=== PATIENT | female | born 1995 | race Caucasian/White ===

== ENCOUNTER 2019-08-26 06:39 | Observation (INO) ==
--- NOTE | 2019-08-21 09:48 | Anesthesiology Consultation ---
Date of Service August 21, 2019 Assessment & Plan (1) Encounter for pre-operative examination: Chart Review Chart Review: entry level management initiated - Check test AM DOS Per nursing assessment 08/20/2019, no recent travel. Resides in [facility]. Uses PPE. No known COVID positive contacts are covered related symptoms. No scheduled preop COVID testing. Patient will need assessed by anesthesia day of surgery and 2020 will most likely will need to be enforced. Patient seen by maxillofacial surgery on 08/14/2019 = history of SVThaving mapping and ablation on August 25. Continues with pain swelling and drainage from infected wisdom tooth on right side. Symptoms intermittent. Chronic wisdom tooth condition should not affect her ability to have sedation or the ablation. After pending August 25 EP procedure/ablation, will plan for general anesthesia to remove infected wisdom tooth after cardiac clearance. History Surgery Operation Date: 08/26/19 08:00 Proposed Procedures p SVT Ablation w/Mapping w/Ang Priest DO Height/Weight Height: 5 ft 3 in Weight: 54.431 kg Allergies Allergy/AdvReac Type Severity Reaction Status Date / Time loracarbef [From Lorabid] Allergy Mild as child Verified 08/20/19 13:35 hives cilantro Allergy Mild Hives Uncoded 08/20/19 13:35 metals AdvReac Mild skin Uncoded 08/20/19 13:35 irritation can wear gold Medications Home Medications Medication Instructions Recorded Confirmed Last Taken medroxyprogesterone 150 mg/mL 150 mg IM ONCE ml 08/14/19 08/20/19 Unknown intramuscular suspension amoxicillin 500 mg capsule 500 mg PO Q8H #21 cap 08/17/19 08/20/19 Unknown Past Medical History Medical History Asthma exercise induced Hx of gastric ulcer a few yrs ago and no problems at present SVT (supraventricular tachycardia) needs EP procedure Past Family History Family History Grandfather (Paternal) Breast cancer Father Cancer Hypertension Brother Hypertension Past Surgical History Surgical History Hx of esophagogastroduodenoscopy Social History Smoking Status: Current some day smoker tobacco type: cigarettes Smoking cigarettes per day: 3 cig a day Do You Dip or Chew Tobacco: No Hx Alcohol Use: No Hx Substance Use: No substance use type: does not use Testing Laboratory Results 08/17/19= WBC: 6.61 H/H: 14.3/41.4 PLATELETS: 269 SODIUM: 141 POTASSIUM: 4.4 CHLORIDE: 102 CO2: 24 BUN: 13 CREATININE: 0.8 GLUCOSE: 94 Electrocardiogram Date: 08/17/19 Atrial flutter with variable AV block at 93 bpm. Rightward axis. Pulmonary disease.
[2019-08-26] MEDS ORDERED: MIDAZOLAM HCL 1 MG/ML 2ML VIAL ONE ×2 (07:45→08:39)
[2019-08-26] MEDS ORDERED: fentaNYL citrate 100 MCG/2 ML VIAL ONE (07:46)
--- NOTE | 2019-08-26 07:48 | History & Physical Report ---
Date of Service August 26, 2019 Assessment & Plan (1) SVT (supraventricular tachycardia): History of Present Illness Chief Complaint: palpitations Primary Care Provider: Rudi Mcadams MD pt here for elective EPS and possible ablation Allergies Allergy/AdvReac Type Severity Reaction Status Date / Time loracarbef [From Lorabid] Allergy Mild as child Verified 08/20/19 13:35 hives cilantro Allergy Mild Hives Uncoded 08/20/19 13:35 metals AdvReac Mild skin Uncoded 08/20/19 13:35 irritation can wear gold Home Medications Home Medications Medication Instructions Recorded Confirmed Type medroxyprogesterone 150 mg/mL 150 mg IM ONCE ml 08/14/19 08/20/19 History intramuscular suspension Past Med/Surg History Medical History Asthma exercise induced Hx of gastric ulcer a few yrs ago and no problems at present SVT (supraventricular tachycardia) needs EP procedure Surgical History Hx of esophagogastroduodenoscopy Family History Grandfather (Paternal) Breast cancer Father Cancer Hypertension Brother Hypertension Social History Preferred Language: Bahamian Communication Ability: Effective Handbag Operator Required: No Beliefs That Will Affect Care: None marital status: Single Current Living Situation: Family Other Information That Helps Us Care for You: No Feels Safe at Home: Yes Safety Concerns: Feels Safe At This Time Smoking Status: Current some day smoker Tobacco Type: cigarettes ; Cigarettes Per Day: 3 cig a day ; Do You Dip or Chew Tobacco: No ; Second Hand Exposure: No ; Tobacco Cessation Education Requested by Patient: No Hx Alcohol Use: No Hx Substance Use: No Review of Systems All systems reviewed & are unremarkable except as noted in HPI & below Physical Exam Physical Exam: aaox3, NAD NC/AT, EOMI Supple No JVD Nrl S1/S2, No murmur CTA b/l no w/r/r soft nt/nd no LE edema b/l skin intact no focal deficits Results & Data Vital Signs (Past 12 Hours) Vital Signs Temp Pulse Resp BP Pulse Ox 07/08/20 07:05 37 C 118 H 20 108/74 97
[2019-08-26] MEDS ORDERED: KETAMINE HCL INJ 50 MG/ML 10 ML VIAL ONE (07:54)
[2019-08-26] MEDS ORDERED: ATROPINE SULFATE 0.1 MG/ML 10ML SYR IV PRN (08:21)
[2019-08-26] MEDS ORDERED: ePHEDrine sulfate 50 MG/ML AMP IV PRN (08:21)
[2019-08-26] MEDS ORDERED: fentaNYL citrate 100 MCG/2 ML VIAL IV PRN (08:21)
[2019-08-26] MEDS ORDERED: ONDANSETRON INJ 2 MG/ML 2 ML VIAL IV PRN (08:21)
[2019-08-26] MEDS ORDERED: PROPOFOL IV EMULSION 10 MG/ML 20 ML VIAL IV ONE ×2 (08:35→10:12)
[2019-08-26] MEDS ORDERED: ONDANSETRON INJ 2 MG/ML 2 ML VIAL ONE (08:35)
[2019-08-26] MEDS ORDERED: ISOPROTERENOL HCL 0.2 MG/ML 5 ML AMP IV ONE (09:00)
[2019-08-26] MEDS ORDERED: ACETAMINOPHEN 325 MG TAB PO PRN (10:39)
--- NOTE | 2019-08-26 10:49 | Discharge Summary ---
Date of Service August 27, 2019 Admission HPI Per Admitting Provider pt here for elective EPS and possible ablation Admission Exam Per Admitting Provider aaox3, NAD NC/AT, EOMI Supple No JVD Nrl S1/S2, No murmur CTA b/l no w/r/r soft nt/nd no LE edema b/l skin intact no focal deficits Principal Diagnosis SVT non-inducible EPS Discharge Exam aaox3, NAD NC/AT, EOMI Supple No JVD Nrl S1/S2, No murmur CTA b/l no w/r/r soft nt/nd no LE edema b/l skin intact no focal deficits b/l groins soft no hematoma Discharge Data Allergies Allergy/AdvReac Type Severity Reaction Status Date / Time loracarbef [From Lorabid] Allergy Mild as child Verified 08/20/19 13:35 hives cilantro Allergy Mild Hives Uncoded 08/20/19 13:35 metals AdvReac Mild skin Uncoded 08/20/19 13:35 irritation can wear gold Procedures Performed Operation Date: 08/26/19 08:00 Actual Procedures p EPS + Ablation for SVT Flutter - DO twila Us 3D Mapping (Carto) - DO twila Us Drug Stimulation - Linda Priest DO LINQ INSERTION ON 08/27/2019 Ordered Studies ECG: SR 08/26/19 07:15 EP Lab Images for PACS ONCE Hospital Course (1) SVT (supraventricular tachycardia): Total Time Total Time Spent Total Time Spent (In Minutes): 40 Total Time Includes: Examination of the Patient, Discharge Planning, Medication Reconciliation and Other Discharge Plan Discharge Items Reason For Visit: Supraventricular Tachycardia Discharge Diagnosis: SVT s/p EPS Condition on Discharge: Good Activity: As commented below Lifting: No more than 10 pounds Lifting Comment: no heavy lifting or squating for 1 week Bathing: No limitations Sexual Activity: After one week Call non-emergency contact if: you have any medication questions Addtl Attending Provider Instructions: Device and wound check next week at [facility] on September 01 at 10:15am Saturday F/u with Dr. Priest at [facility] Cardiology on Saturday10/02/2019 at 11:45am Pending Studies at Discharge: No Stand-Alone Forms: My [facility] Medications and DC Order Prescriptions: Continued medroxyprogesterone [Depo-Provera] 150 mg/mL suspension 150 mg IM ONCE RF: 0 Admission Data Admit Date/Time: 08/26/19 10:45 Attending Provider: Linda Priest Admit Provider: Linda Priest Primary Care Provider: Rudi Mcadams
--- NOTE | 2019-08-26 11:31 | Anesthesiology Progress Note ---
Date of Service August 26, 2019 Anesthesia Post Procedure Vital Signs Vital Signs: Temp Pulse Resp BP Pulse Ox 08/26/19 11:15 86 20 88/55 L 99 08/26/19 11:00 92 H 20 84/54 L 100 08/26/19 07:05 98.6 F 118 H 20 108/74 97 Transfer of Care Handoff Completed per policy Notes Mental Status: alert / awake / arousable and participated in evaluation Patient Amnestic to Procedure: Yes Nausea / Vomiting: adequately controlled Pain: adequately controlled Airway Patency, RR, SpO2: stable & adequate BP & HR: stable & adequate Hydration State: stable & adequate Anesthetic Complications: no major complications apparent and Pt Satisfied with anesthetic care
--- NOTE | 2019-08-26 17:55 | Operative Report (OR) ---
DATE OF OPERATION: 08/26/2019 PREOPERATIVE DIAGNOSIS: Supraventricular tachycardia. POSTOPERATIVE DIAGNOSES: Noninducible electrophysiology study for an supraventricular tachycardia. There was evidence of dual atrioventricular sari pathway and transient high-degree atrioventricular block. PROCEDURE: Electrophysiology study, isuprel drug infusion, 3D mapping of the His bundle region. SURGEON: Linda Pirest DO. SALESPERSON SHEET MUSIC: None. ANESTHESIA: Given by Anesthesiology. Please refer to their notes for complete details. Start time was 07:55, end time 10:31. They gave a total of 6 mg of Versed, 100 mcg of fentanyl, 30 mg of ketamine, 450 mg of propofol. ADDITIONAL MEDICINES: 4 mg of Zofran. INTRAVENOUS FLUIDS: 800 mL URINE OUTPUT: Not applicable. COMPLICATIONS: None. FINDINGS: See below. DRAINS: None. BLOOD LOSS: 5 mL INDICATIONS: This is a 24-year-old female with past medical history for recurrent SVT responding to vagal maneuvers and in [place], she actually went to the hospital and got adenosine. Unfortunately, those 12 leads were not available. Palpitations and a family history of SVT as well as she has a personal history of endometriosis. Due to the recurrent SVT, she was recommended an electrophysiology study with possible ablation. CONSENT: Consent was obtained prior to the patient going into electrophysiology lab. The patient was informed of the risks, benefits and alternative of procedure. Risks include but not limited to sudden cardiac , cardiac arrhythmias, cerebrovascular accident, myocardial infarction, injury to the blood vessels, chamber of the heart or the [place] electrical system where she would need a permanent pacemaker, bleeding and infection. The patient understood these risks and agreed to proceed as planned. Informed consent was obtained. DESCRIPTION OF THE PROCEDURE: The patient was brought into electrophysiology lab in a fasting state. It was connected to continuous cardiac monitoring. A timeout was performed to ensure patient identity and procedure correctly. The patient was prepped and draped over bilateral groins in normal surgical standard fashion. Monitored anesthetic care was given throughout the procedure for patient's comfort level via anesthesiology. [place] precautions were maintained throughout the procedure. 10 mL of 1% lidocaine, bupivacaine mixture were given in the bilateral groins. Then using the modified Seldinger technique, venous access was obtained in the following manner. The right femoral vein had a 6-German sheath followed then by a quadripolar Joel catheter positioned in the high right atrium and a 6-German sheath that ultimately was swapped out for an SRO and then the ablation 4 mm nonirrigated DF curved catheter. The left femoral vein had a 6-German sheath followed by a Joel quadripolar catheter positioned at the right ventricular apex. A 7-German sheath with a Hisser catheter positioned over the His bundle region and a 7-German sheath with a Decapolar Biosense DF curved coronary sinus catheter positioned down the coronary sinus. With all the catheters positioned an electrophysiology study was performed with the following findings: Sinus cycle length 834 milliseconds, PA 138 milliseconds, QRS 69 milliseconds, QT 395 milliseconds, AH was 61 milliseconds, HV was 39 milliseconds. The AV Wenckebach was 410 milliseconds. There was evidence of dual AV sari pathway where the fast pathway ERP was 600/360 and 500/390 and the AV node ERP was 600/340 and 500/360. The atrial ERP was 600/200 and 500/220 and the right ventricular ERP was 600/240 and 400/230. I gave up to triples from the HRA and the coronary sinus without any inducible SVT, so I started isuprel at 2. Once I had a nice isuprel response, electrophysiology study was performed with the following findings: Sinus cycle length 483 milliseconds, PA 97 milliseconds, QRS 63 milliseconds, QT 294 milliseconds, AH 44 milliseconds, HV 35 milliseconds, AV Wenckebach was 230 milliseconds, the AV node and the atrial ERP was less than or equal to 400/200. I gave up to triples from the high right atrium. There was no inducible SVT, but I did see 1 or 2 echoes. I then tried to increase Isuprel to 4, but there was still no inducible SVT. Then I stopped the isuprel and interestingly with stopping during washout her heart rate went down to about 700 milliseconds. Did not induce any SVT, but I did have some echoes with the evidence of dual AV sari pathway and some echo beats I opted to set up to do an empiric slow pathway modification. The 6-German sheath on the right femoral groin was swapped out for an SRO and the ablation catheter was placed up into the heart. A 3D mapping of the coronary sinus os and then I started 3D mapping of the His bundle, when I had the ablation catheter over the His bundle, the patient went into a high degree AV block that lasted for almost probably 10 minutes, it must have been a mechanical bump in addition to anesthesia. She did recover back into a sinus and I did an electrophysiology study which found the following findings: Sinus cycle length 746 milliseconds, PA 138 milliseconds, QRS 76 milliseconds, QT 359 milliseconds, the AH was 69 milliseconds, HV was 43 milliseconds, AV Wenckebach was 350 milliseconds, the AV node ERP was 600/280 and 400/280. The atrial ERP was 600/200 and less than or equal to 400/200. The right ventricular ERP was 600/260 and 400/220. I gave up to triples from the high right atrium and there was no inducible SVT. Of note, I also did not see any evidence of dual AV sari pathway. Given that I never induced an SVT and it was going to be an empiric, was thought to be her clinical SVT as slow pathway as AVNRT given the dual AV sari physiology and echo beats. I opted not to, given that she had that significant prolonged transient AV block with a mechanical bump on the catheter of her His. All the catheters were then removed from her body and the groin sheaths were pulled and hemostasis was established. IMPRESSION: 1. Noninducible electrophysiology study for an supraventricular tachycardia. 2. Evidence of dual atrioventricular sari physiology. 3. Transient high degree atrioventricular block, most likely secondary to mechanical bump with the ablation catheter when mapping the His bundle region. PLAN: Monitor patient overnight, 12-lead ECG. Recommend LINQ insertion tomorrow and I will see her back in the office in 1 month's time. I attest to the content of the Intraoperative Record and any orders documented therein. Any exception s are noted below.
--- NOTE | 2019-08-27 06:02 | Electrocardiogram Report ---
Test Reason : Blood Pressure : / mmHG Vent. Rate : 078 BPM Atrial Rate : 078 BPM P-R Int : 134 ms QRS Dur : 080 ms QT Int : 382 ms P-R-T Axes : 075 096 077 degrees QTc Int : 435 ms Normal sinus rhythm Rightward axis Borderline ECG No previous ECGs available Confirmed by Franky Shelley ([id number]) on 08/27/2019 6:02:48 AM Referred By: Linda Priest Confirmed By:Franky Shelley
[2019-08-27] MEDS ORDERED: LIDOCAINE HCL 1% 20 ML VIAL ONE (07:43)
[2019-08-27] MEDS ORDERED: CEFAZOLIN 250 MG/ML 1 GM VIAL ONE (07:43)
--- NOTE | 2019-08-27 07:49 | History & Physical Bridge Note ---
Date of Service August 27, 2019 History & Physical Bridge Note I have examined the patient, reviewed the History & Physical and in the interval since the performance of the History & Physical I have noted the following changes of clinical significance: pt had an EPS that was non-inducible for SVT so recommend LINQ insertion; consents signed.
--- NOTE | 2019-08-27 08:11 | Operative Report ---
Post Operative Report Pre & Post Diagnosis Pre: SVT and negative EPS for inducible SVT Post: SAME Operation Date: 08/26/19 08:00 <No data on this case meets the specified criteria> Operation Date: 08/27/19 07:30 <No data on this case meets the specified criteria> I identified the patient and participated in the time-out.: Yes Procedure Operation Date: 08/26/19 08:00 Actual Procedures p EPS + Ablation for SVT Flutter - DO twila Us 3D Mapping (Carto) - DO twila Us Drug Stimulation - Linda Priest DO Operation Date: 08/27/19 07:30 Actual Procedures p Implant Cardiac Event Recorder - Linda Priest DO Surgeon Linda Priest DO Diversity Intern NONE Estimated Blood Loss 1 Findings Consistent with Post-Op Diagnosis Specimens NONE Description of Procedure SEE OFFICAL REPORT I attest to the content of the Intraoperative Record and any orders documented therein. Any exceptions are noted below.
--- NOTE | 2019-09-16 09:39 | Operative Report (OR) ---
DATE OF OPERATION: 08/27/2019 PREOPERATIVE DIAGNOSES: Palpitation, supraventricular tachycardia and negative electrophysiology study. POSTOPERATIVE DIAGNOSES: Palpitation, supraventricular tachycardia and negative electrophysiology study. PROCEDURE: LINQ insertion. SURGEON: Linda Priest DO. ASSISTANTS: None. ANESTHESIA: 10 mL of 1% lidocaine for local anesthesia. BLOOD LOSS: 1 mL URINE OUTPUT: Not applicable. SPECIMENS: None. FINDINGS: See below. DRAINS: None. INDICATIONS: This is a 24-year-old female with past medical history for SVT back in [place]. She did require adenosine but unfortunately I did not have the strips from that as well as recurrent palpitations and family history of SVT where her mother had probable left lateral bypass tract and AVNRT. She underwent an electrophysiology study yesterday that was negative for any inducible arrhythmias, so there was no ablation performed so the LINQ was recommended. CONSENT: Consent was obtained prior to the patient going into electrophysiology lab. The patient was informed of the risks, benefits and alternative procedure. Risks include but not limited to bleeding and infection. DESCRIPTION OF THE PROCEDURE: The patient was brought into electrophysiology lab. She was prepped and draped over the left sternal border in normal surgical standard fashion. [place] precautions were maintained throughout the procedure. She received prophylactic antibiotics prior to incision. 10 mL of 1% lidocaine were given in the fourth intercostal space to the left of the sternal border. Then using the LINQ tool kit, the LINQ was inserted and using a 4-0 Vicryl interrupted suture followed by running stitch, the skin was approximated and Dermabond was applied. EQUIPMENT: The Reveal [id number], serial number [id number]. Postoperative R waves are 1.25 millivolts. PARAMETERS: Tachy 188 beats for 16 beats, [place] is 30 beats for 4 beats and pause of 3 seconds. IMPRESSION: Successful LINQ insertion secondary to negative EPS study with palpitations and history of supraventricular tachycardia. PLAN: She can be discharged home. She will follow up in [facility] next week and follow up with me in 1 week. I attest to the content of the Intraoperative Record and any orders documented therein. Any exception s are noted below.
== END 2019-08-27 09:17 | disposition home or self-care (01) ==
LOC: 2S 06:39 → EP 06:39